=== PATIENT | male | born 1995 | race Caucasian/White ===

== ENCOUNTER 2019-09-08 19:42 | Emergency (ER) | payer OTHER ==
--- NOTE | 2019-09-08 20:01 | EDM.PDOC ---
ED HPI GENERAL MEDICAL PROBLEM - General Chief Complaint: Lower Extremity Injury/Pain Stated Complaint: LEFT FOOT INJURY Time Seen by Provider: 09/08/19 19:46 Source of Information: Reports: Patient History Limitations: Reports: No Limitations - History of Present Illness INITIAL COMMENTS - FREE TEXT/NARRATIVE: 24-year-old male with no past medical history presenting with a leg injury. Approximately 90 minutes prior to arrival, the patient was moving a 200 pound gun safe up the stairs when the safe slipped and fell onto the distal anterolateral aspect of his left leg. The patient fell down onto the stairs but did not fall down the stairs. For the past hour, the patient has not been able to ambulate due to pain in the left leg. Took 1 ibuprofen tablet prior to arrival. Denies any other complaints or injuries. Denies numbness or tingling in left lower extremity. Left Foot Pain Score (Numeric/FACES): 5 - Related Data Allergies Allergy/AdvReac Type Severity Reaction Status Date / Time No Known Allergies Allergy Verified 09/08/19 20:04 Home Meds: Home Meds . [No Known Home Meds] 09/08/19 [History] Past Medical History - Past Health History Medical/Surgical History: Denies Medical/Surgical History Social & Family History - Family History Family Medical History: Noncontributory Review of Systems - Review of Systems Review Of Systems: See Below Musculoskeletal: Reports: Leg Pain. Denies: Foot Pain Neurological: Reports: Difficulty Walking. Denies: Numbness, Paresthesia, Tingling ED EXAM, GENERAL - Physical Exam Exam: See Below Free Text/Narrative:: Vital signs reviewed. Nursing notes reviewed. Constitutional: Awake, alert, non-distressed. Head: Normocephalic, atraumatic. Eyes: EOMI, conjunctiva normal, no discharge, no scleral icterus. Cardiovascular: 2+ left dorsalis pedis pulse, capillary refill less than 2 seconds in the left foot Pulmonary: normal work of breathing, no accessory muscle use. Musculoskeletal: No deformities. Mild tenderness to palpation to the distal anterolateral aspect of the left leg without gross deformity. No tenderness to palpation of the left malleoli, the left foot, or the left knee. Normal range of motion to the left knee and ankle joints. Integumentary: Appropriate color for ethnicity, warm, dry, no pallor or jaundice , no rash. Neurologic: Alert, answering questions appropriately, normal speech, no facial droop, moving all extremities well. Sensation intact to light touch to the left lower extremity. Psychiatric: Appropriate mood and affect, normal thought process. Course - Vital Signs Text/Narrative:: 58-year-old female past medical history of hypertension and hypothyroidism presenting with dysuria. Patient hemodynamically stable, afebrile, well- appearing, looks nontoxic. Differential diagnosis includes but is not limited to: Fracture, dislocation, contusion, soft tissue injury, etc. 2028: X-rays appear negative, no evidence of any bony injury by my read. I reevaluated the patient, and his pain is well controlled. No numbness or tingling in the left lower extremity. Repeated pulse checks, 2+ left dorsalis pedis pulse. Patient is stable to discharge home with outpatient primary care follow-up. Encouraged ice packs, elevation at night, [id number] Tylenol & Motrin as needed. Strict emergency department return precautions were provided, patient indicated understanding. All questions were answered prior to departure. Discharged in good condition. Last Recorded V/S: Last Vital Signs Temp 36.6 C 09/08/19 20:00 Pulse 99 09/08/19 20:00 Resp 18 09/08/19 20:00 BP 147/87 H 09/08/19 20:00 Pulse Ox 98 09/08/19 20:00 Departure - Departure Time of Disposition: 20:30 Disposition: Home, Self-Care 01 Condition: Good Clinical Impression: Left leg pain - Discharge Information *PRESCRIPTION DRUG MONITORING PROGRAM REVIEWED*: Not Applicable *COPY OF PRESCRIPTION DRUG MONITORING REPORT IN PATIENT OCTAVIO: Not Applicable Instructions: How to Use Cold Therapy, [id number], Musculoskeletal Pain Referrals: [facility] - [facility] [Provider Group] - 1 Week (As needed for follow-up of your complaints) Forms: ED Department Discharge Additional Instructions: I recommend over the counter acetaminophen and ibuprofen as directed on the package for pain. You can elevate your leg at night as well if you develop any swelling. Please follow-up with a primary medical doctor in the next few days if you are not feeling better. Return to the emergency department believe you are feeling worse. The following information is given to patients seen in the emergency department who are being discharged to home. This information is to outline your options for follow-up care. We provide all patients seen in our emergency department with a follow-up referral. The need for follow-up, as well as the timing and circumstances, are variable depending upon the specifics of your emergency department visit. If you don't have a primary care physician on staff, we will provide you with a referral. We always advise you to contact your personal physician following an emergency department visit to inform them of the circumstance of the visit and for follow-up with them and/or the need for any referrals to a consulting specialist. The emergency department will also refer you to a specialist when appropriate. This referral assures that you have the opportunity for follow-up care with a specialist. All of these measure are taken in an effort to provide you with optimal care, which includes your follow-up. Under all circumstances we always encourage you to contact your private physician who remains a resource for coordinating your care. When calling for follow-up care, please make the office aware that this follow-up is from your recent emergency room visit. If for any reason you are refused follow-up, please contact the [facility] Emergency Department at and asked to speak to the emergency department charge nurse. If you do not have a primary care physician that is caring for you, you can contact these clinics below to set up an appointment to establish care: [facility] - Primary Care [address] [place] [address] [id number] [address] [address] Sepsis Event Note - Focused Exam Vital Signs: Vital Signs Temp Pulse Resp BP Pulse Ox 09/08/19 20:00 36.6 C 99 18 147/87 H 98 Date Exam was Performed: 09/08/19 Time Exam was Performed: 20:37
--- NOTE | 2019-09-08 20:31 | CR ---
Left tibia and fibula: 2 views of the left tibia and fibula were obtained. Comparison: No prior study. No fracture or other bony abnormality is appreciated. Impression: 1. No abnormality is appreciated on 2 view left tibia and fibula exam. Diagnostic code #1 This report was dictated in MDT
== END 2019-09-08 20:50 | disposition home or self-care (01) ==
LOC: MW.ED 19:42
DX: M79.605 Pain in left leg (principal); I10 Essential (primary) hypertension; E03.9 Hypothyroidism, unspecified; W20.8XXA Other cause of strike by thrown, projected or falling object, initial encounter
CPT/HCPCS: 73590-26-LT; 73590-LT; 99283; 99283-25

== ENCOUNTER 2025-03-10 19:48 | Emergency (ER) | payer OTHER ==
[2025-03-10 20:35] LABS: BASOPHILS ABSOLUTE AUTO 0.08 K/uL (0.00-0.20); BASOPHILS PERCENT AUTO 0.7 % (0.0-1.0); EOSINOPHILS ABSOLUTE AUTO 0.16 K/uL (0.00-0.45); EOSINOPHILS PERCENT AUTO 1.4 % (0.0-6.0); IMMATURE GRAN ABSOLUTE AUTO 0.05 K/uL (0.00-0.05); IMMATURE GRAN PERCENT AUTO 0.5 % (0.0-0.4); LYMPHOCYTES ABSOLUTE AUTO 2.00 K/uL (1.00-4.80); LYMPHOCYTES PERCENT AUTO 18.0 % (24.0-44.0); MEAN PLATELET VOLUME 9.5 fL (9.4-12.4); MONOCYTES ABSOLUTE AUTO 0.74 K/uL (0.00-0.80); MONOCYTES PERCENT AUTO 6.7 % (0.0-8.0); NEUTROPHILS ABSOLUTE AUTO 8.06 K/uL (1.80-7.70); NEUTROPHILS PERCENT AUTO 72.7 % (41.0-71.0); NRBC ABSOLUTE 0.00 K/uL (0.00-0.02); NRBC PERCENT 0.0 /100WBC (0.0-0.2); PLATELET COUNT,PLT 459 K/uL (150-400); RED BLOOD CELL COUNT 5.22 M/uL (4.52-5.90); WHITE BLOOD CELL COUNT,WBC 11.09 K/uL (3.9-11.3)
[2025-03-10 20:50] LABS: INR 1.06 (0.86-1.11); PTT,PARTIAL THROMBOPLSTIN TIME 28.2 SEC (23.9-30.7)
[2025-03-10 21:09] LABS: A/G RATIO 1.2 (0.9-1.6); ALANINE AMINOTRANSFERASE,ALT 49.0 IU/L (14-63); ASPARTATE AMNIOTRANSFERASE,AST 18.0 IU/L (15-37); BILIRUBIN TOTAL 0.6 mg/dL (0.2-1.0); BLOOD UREA NITROGEN,BUN 12.0 mg/dL (7.0-18.0); CARBON DIOXIDE,CO2 27.9 mmol/L (21.0-32.0); CHLORIDE,CL 104.0 mmol/L (98-107); CREATINE KINASE,CK 51.0 U/L (26-308); CREATININE 1.0 mg/dL (0.8-1.3); EST CRCL DRUG DOSING (CG) 101.9 mL/min; GLUCOSE RANDOM 114.0 mg/dL (74-106); POTASSIUM,K 3.8 mmol/L (3.5-5.1); PRO B-TYPE NATRIUR PEPT,BNPPRO 6.0 pg/mL (0-125); PROTEIN TOTAL,TP 7.6 g/dL (6.4-8.2); SODIUM,NA 141.0 mmol/L (136-148); TSH ULTRASENSITIVE 1.88 uIU/mL (0.36-3.74)
[2025-03-10 21:12] LABS: ESTIMATED GFR 104.0 mL/min (>60)
== END 2025-03-10 21:20 | disposition home or self-care (01) ==
LOC: MW.ED 19:48
DX: R07.9 Chest pain, unspecified (principal); F17.200 Nicotine dependence, unspecified, uncomplicated; Z75.3 Unavailability and inaccessibility of health-care facilities
CPT/HCPCS: 36415; 71045; 71045-26; 80053; 82550; 83880; 84443; 84484; 85025; 85610; 85730; 93005; 93010; 99284; 99285